=== PATIENT | male | born 1950 | race Caucasian/White ===

== ENCOUNTER → 2016-10-28 | Outpatient (CLI) | payer MEDICARE, BC ==
--- NOTE | 2016-10-28 13:14 | PCVCIMAG ---
APPROVED REPORT Exam: Stress Echocardiogram Indication: CAD, STENT, HLP, HTN Stress Nurse: Rianna Alonso RN Status: routine HR: 57 bpm Rhythm: NSR Procedure The patient underwent an Exercise Stress Test using the Javi Protocol. Blood pressure, heart rate, and EKG were monitored. An Echocardiogram was performed by installation and service technician in four stages in quad fashion. At peak stress, four selected images were obtained and placed side by side with resting images for comparison. Stress Test Details Stress Test: Exercise stress testing was performed using a Javi protocol. HR Resting HR: 57 bpmMax Heart Rate (APMHR): 155 bpm Max HR Achieved: 151 bpmTarget HR (85% APMHR): 131 bpm % of APMHR: 97 HR response to stress: Normal HR response to stress BP Resting BP: 142/80 mmHg ECG Resting ECG: Sinus Rhythm Clinical Reason for Termination: Maximal effort Exercise duration: 12 min sec Exercise capacity: 13.70 METs Overall Exercise Capacity for Age: Good Pre-Stress Echo The resting Echocardiogram showed normal left ventricular contractility with an estimated Ejection Fraction of about >55%. Mild inferior wall hypokinesis. Post-Stress Echo The stress Echocardiogram showed normal left ventricular contractility with an estimated Ejection Fraction of about 55-60%. Inferior wall remains mildly hypokinetic. prev noted Conclusion Clinical Response: Non-ischemic Exercise Capacity: Superior Stress ECG Response: Non-ischemic Stress Echo Images: Non-ischemic Other Information Study Quality: Good
== END | disposition home or self-care (01) ==
LOC: PCVCIMAG 09:04
PROVIDERS: ATTEND Internal Medicine Cardiovascular Disease
DX: I25.10 Atherosclerotic heart disease of native coronary artery without angina pectoris (principal); I10 Essential (primary) hypertension; E78.5 Hyperlipidemia, unspecified; Z95.5 Presence of coronary angioplasty implant and graft
CPT/HCPCS: 93325; 93351

== ENCOUNTER → 2017-06-29 | Outpatient (CLI) | payer MEDICARE, BC | END | disposition home or self-care (01) | LOC: PCVCIMAG 12:53 | DX: I25.10 Atherosclerotic heart disease of native coronary artery without angina pectoris (principal); I10 Essential (primary) hypertension; E78.00 Pure hypercholesterolemia, unspecified; R68.89 Other general symptoms and signs; R53.83 Other fatigue; I34.0 Nonrheumatic mitral (valve) insufficiency; Z87.891 Personal history of nicotine dependence; Z79.899 Other long term (current) drug therapy | CPT/HCPCS: 93005; 93306; G0463 ==

== ENCOUNTER → 2017-06-30 | Outpatient (CLI) | payer MEDICARE, BC | END | disposition home or self-care (01) | LOC: PCVCIMAG 12:04 | DX: I25.10 Atherosclerotic heart disease of native coronary artery without angina pectoris (principal); R07.9 Chest pain, unspecified; E78.5 Hyperlipidemia, unspecified; I10 Essential (primary) hypertension; Z82.49 Family history of ischemic heart disease and other diseases of the circulatory system; Z95.5 Presence of coronary angioplasty implant and graft | CPT/HCPCS: 78452; 93017; A9500 ==

== ENCOUNTER → 2017-10-25 | Outpatient (CLI) | payer MEDICARE, BC | END | disposition home or self-care (01) | LOC: PCVCIMAG 10:05 | DX: I65.21 Occlusion and stenosis of right carotid artery (principal); I10 Essential (primary) hypertension | CPT/HCPCS: 93880 ==

== ENCOUNTER → 2018-05-02 | Outpatient (CLI) | payer MEDICARE, BC | END | disposition home or self-care (01) | LOC: PCVCCLINIC 15:10 | PROVIDERS: ATTEND Internal Medicine Cardiovascular Disease | DX: I25.10 Atherosclerotic heart disease of native coronary artery without angina pectoris (principal); I65.23 Occlusion and stenosis of bilateral carotid arteries; I10 Essential (primary) hypertension; E78.00 Pure hypercholesterolemia, unspecified; R00.1 Bradycardia, unspecified; F17.210 Nicotine dependence, cigarettes, uncomplicated | CPT/HCPCS: 36415; 80061; 93005; G0463 ==

== ENCOUNTER → 2018-08-22 | Outpatient (CLI) | payer MEDICARE, BC ==
--- NOTE | 2018-08-22 12:29 | PCVCIMAG ---
APPROVED REPORT Study performed: 08/22/2018 09:58:49 Exam: Stress Echocardiogram Indication: CAD , Hyperlipidemia, Hypertension Patient Location: Echo lab Stress Nurse: Rianna Alonso RN Status: routine Ht: 5 ft 9 in HR: 62 bpm BP: 140/70 mmHg Rhythm: NSR Medical History Medical History: CAD s/p stent Procedure The patient underwent an Exercise Stress Test using the Javi Protocol. Blood pressure, heart rate, and EKG were monitored. An Echocardiogram was performed by plant maintenance technician in four stages in quad fashion. At peak stress, four selected images were obtained and placed side by side with resting images for comparison. Stress Test Details Stress Test: Exercise stress testing was performed using a Javi protocol. HR Resting HR: 62 bpmMax Heart Rate (APMHR): 154 bpm Max HR Achieved: 144 bpmTarget HR (85% APMHR): 130 bpm % of APMHR: 93 Recovery HR: 77 bpm HR response to stress: Normal HR response to stress BP Resting BP: 140/70 mmHg Max BP: 172/84 mmHg Recovery BP: 164/84 mmHg BP response to stress: Normal blood pressure response to stress. ECG Resting ECG: Sinus Rhythm Stress ECG: Sinus Rhythm ST Change: Non-specific ST-T changes Arrhythmia: VPC's, Couplets Recovery ECG: Sinus Rhythm Clinical Reason for Termination: Maximal effort Exercise duration: 12 min 00 sec Highest Stage Achieved: Stage 4: 4.2 mph at 16% grade. Exercise capacity: 13.70 METs Overall Exercise Capacity for Age: Good Pre-Stress Echo The resting Echocardiogram showed normal left ventricular contractility with an estimated Ejection Fraction of about 55-60%. Mild inferior hypokinesis. Post-Stress Echo The stress Echocardiogram showed normal left ventricular contractility with an estimated Ejection Fraction of about 60-65%. Mild inferior hypokinesis. No new regional wall abnormalities.small distal apical hypo Conclusion Clinical Response: Non-ischemic Exercise Capacity: Superior Stress ECG Response: Equivocal Stress Echo Images: Non-ischemic subtle small apical hypo cw small diffue disaese in distal LAD Other Information Study Quality: Good <Conclusion> subtle small apical hypo cw small diffue disaese in distal LAD
== END | disposition home or self-care (01) ==
LOC: PCVCIMAG 09:41
PROVIDERS: ATTEND Internal Medicine Cardiovascular Disease
DX: I25.10 Atherosclerotic heart disease of native coronary artery without angina pectoris (principal); E78.5 Hyperlipidemia, unspecified; I10 Essential (primary) hypertension; E78.00 Pure hypercholesterolemia, unspecified; Z95.5 Presence of coronary angioplasty implant and graft
CPT/HCPCS: 93325; 93351